=== PATIENT | female | born 1995 | race Two or more races ===

== ENCOUNTER 2021-02-11 09:58 | Day surgery (SDC) | payer OTHER ==
[2021-02-11] MEDS ORDERED: NAPR500T14 PO (18:34)
[2021-02-11] MEDS ORDERED: MORGIDOX100 MG PO (18:34)
== END 2021-02-11 21:30 | disposition home or self-care (01) ==
LOC: CIR.AMB 09:58
PROVIDERS: ATTEND Obstetrics & Gynecology
DX: D25.0 Submucous leiomyoma of uterus (principal); N84.0 Polyp of corpus uteri; Z20.822 Contact with and (suspected) exposure to COVID-19

== ENCOUNTER 2023-12-26 09:40 | Outpatient (CLI) | payer OTHER ==
[~2023-12-26 09:40] MED LIST: MORGIDOX100 MG PO; NAPR500T14 PO
== END 2023-12-26 09:43 | disposition home or self-care (01) ==
LOC: PRENATAL 09:40
PROVIDERS: ATTEND Obstetrics & Gynecology Maternal & Fetal Medicine
DX: O35.9XX0 Maternal care for (suspected) fetal abnormality and damage, unspecified, not applicable or unspecified (principal); O44.00 Complete placenta previa NOS or without hemorrhage, unspecified trimester; Z3A.21 21 weeks gestation of pregnancy